=== PATIENT | male | born 1965 | race Caucasian/White ===

== ENCOUNTER 2022-02-27 15:39 | Inpatient (IN) ==
[2022-02-27] MEDS ORDERED: 0.9 % Sodium Chloride 2,000 ML ONE (15:52)
[2022-02-27] MEDS ORDERED: Nitroglycerin 1,000 MCG/5 ML VIAL IV ONE (15:52)
[2022-02-27] MEDS ORDERED: *HR* Heparin 10,000 UNIT/10 ML VIAL ONE (15:52)
[2022-02-27] MEDS ORDERED: Iopamidol - 370 200 ML INFUS..BTL ONE (15:52)
[2022-02-27] MEDS ORDERED: Heparin 1,000 UNITS/500 mL 500 ML ONE (15:52)
[2022-02-27] MEDS ORDERED: *HR* FentaNYL (PF) 100 MCG/2 ML VIAL ONE (16:53)
[2022-02-27] MEDS ORDERED: *HR* Midazolam HCl 2 MG/2 ML VIAL ONE ×2 (16:53→17:34)
[2022-02-27] MEDS ORDERED: Naloxone 0.4 MG/ML INJ IVP PRN (20:44)
[2022-02-27] MEDS: Insulin LISPRO 300 UNITS/3 ML VIAL SUBQ SCH (22:01)
[2022-02-28] MEDS: Aspirin 81 MG TAB.CHEW PO SCH (08:32)
[2022-02-28] MEDS: Insulin LISPRO 300 UNITS/3 ML VIAL SUBQ SCH ×3 (08:36→17:26)
[2022-02-28] MEDS ORDERED: Nitroglycerin 0.4 MG TAB.SUBL SL PRN (08:39)
[2022-02-28 09:51] LABS: Estimated Average Glucose 148 mg/dl; Hemoglobin A1C 6.8 %
[2022-02-28 09:58] LABS: Hemoglobin 15.6 g/dL (12.9-16.9); Mean Corpuscular HGB Conc 33.9 g/dL (31.6-35.5); Mean Corpuscular Hemoglobin 31.5 pg (28.0-33.3); Mean Corpuscular Volume 92.7 fL (83.0-100.0); Mean Platelet Volume 10.5 fL (9.4-12.4); Platelet Count 209 K/mcL (140-400); Red Blood Count 4.96 M/mcL (4.19-5.50); Red Cell Distribution Width 13.3 % (11.5-14.5); White Blood Count 12.3 K/mcL (4.3-11.1)
[2022-02-28 10:48] LABS: BUN/Creatinine Ratio 11 (6-26); Blood Urea Nitrogen 8 mg/dL (6-20); Calcium 9.3 mg/dL (8.6-10.3); Carbon Dioxide 22 mEq/L (23-29); Chloride 108 mEq/L (98-107); Glucose 138 mg/dL (70-105); Osmolality,Calculated 287 (280-300); Sodium 138 mEq/L (136-145)
[2022-02-28] MEDS: Nicotine 14 MG PATCH.TD24 TD SCH (14:21)
[2022-03-01 03:16] LABS: Hematocrit 44.5 % (37.5-50.1); Mean Corpuscular HGB Conc 33.7 g/dL (31.6-35.5); Mean Corpuscular Hemoglobin 31.4 pg (28.0-33.3); Mean Corpuscular Volume 93.3 fL (83.0-100.0); Mean Platelet Volume 10.9 fL (9.4-12.4); Platelet Count 192 K/mcL (140-400); Red Blood Count 4.77 M/mcL (4.19-5.50); Red Cell Distribution Width 13.2 % (11.5-14.5); White Blood Count 10.6 K/mcL (4.3-11.1)
[2022-03-01 03:57] LABS: BUN/Creatinine Ratio 13 (6-26); Blood Urea Nitrogen 10 mg/dL (6-20); Calcium 9.3 mg/dL (8.6-10.3); Carbon Dioxide 23 mEq/L (23-29); Chloride 107 mEq/L (98-107); Glucose 152 mg/dL (70-105); Osmolality,Calculated 290 (280-300); Potassium 3.4 mEq/L (3.5-5.1); Sodium 139 mEq/L (136-145); Troponin I 3.08 ng/mL (< 0.04)
[2022-03-01 04:09] VITALS: TEMP 97.9
[2022-03-01] MEDS: Aspirin 81 MG TAB.CHEW PO SCH (08:55)
[2022-03-01] MEDS: Nicotine 14 MG PATCH.TD24 TD SCH (08:56)
[2022-03-01] MEDS: Insulin LISPRO 300 UNITS/3 ML VIAL SUBQ SCH ×2 (08:57→13:48)
[2022-03-01 13:55] VITALS: BP 133/87; O2SAT 96
[2022-03-01 13:57] VITALS: PULSE 82
[2022-03-01] MEDS ORDERED: Metoprolol XL (24 HR) Succ 25 MG TAB.ER.24H PO SCH (21:00)
== END 2022-03-01 15:54 | disposition home or self-care (01) | DRG 247 ==
LOC: 2NNU 18:25
PROVIDERS: ADMIT Internal Medicine; ATTEND Internal Medicine